=== PATIENT | female | born 1985 | race African-American/Black ===

== ENCOUNTER 2018-06-26 13:34 | Emergency (ER) | payer OTHER ==
[~2018-06-26] VITALS: Ht 165.1 cm; Wt 113.4 kg
[~2018-06-26 13:34] MED LIST: ALL DAY ALLERGY10 M2 PO; NAPROSYN500 MG PO; NOHOMEMEDICATIONS; NORVASC5 MG PO; PREDNISONE 20 M20 MG PO; ZESTRIL20 MG PO
[2018-06-26] MEDS ORDERED: VENTOLIN HFA 1818 GM INH (15:33)
[2018-06-26] MEDS ORDERED: MEDROLDOSEPACK PO (15:33)
[2018-06-26] MEDS ORDERED: AZITHROMYCIN500 MG PO (15:33)
[2018-06-26 15:43] VITALS: BP 143/88
== END 2018-06-26 15:44 | disposition home or self-care (01) ==
LOC: M.ERS 13:34
DX: J02.9 Acute pharyngitis, unspecified (principal); I10 Essential (primary) hypertension; Z90.721 Acquired absence of ovaries, unilateral

== ENCOUNTER 2019-10-31 07:32 | Emergency (ER) | payer OTHER ==
[~2019-10-31] VITALS: Ht 167.6 cm; Wt 90.7 kg
[~2019-10-31 07:32] MED LIST changes: +AZITHROMYCIN500 MG PO; +MEDROLDOSEPACK PO; +VENTOLIN HFA 1818 GM INH
[2019-10-31] MEDS ORDERED: IBUPROFEN 800800 M1 PO (07:59)
[2019-10-31] MEDS ORDERED: FLEXERIL PO (07:59)
[2019-10-31] MEDS ORDERED: NORCO 5-325 TA1 EAC1 PO (07:59)
[2019-10-31 08:16] VITALS: BP 179/104
== END 2019-10-31 08:16 | disposition home or self-care (01) ==
LOC: M.ERS 07:32
DX: M54.5 Low back pain (principal); I10 Essential (primary) hypertension

== ENCOUNTER 2020-07-13 08:49 | Emergency (ER) | payer BC ==
[~2020-07-13] VITALS: Ht 167.6 cm; Wt 116.6 kg
[~2020-07-13 08:49] MED LIST changes: +FLEXERIL PO; +IBUPROFEN 800800 M1 PO; +NORCO 5-325 TA1 EAC1 PO
[2020-07-13] MEDS ORDERED: HYDROCHLOROTHIA25 M2 PO (08:59)
[2020-07-13] MEDS ORDERED: NORVASC 2.5 MG2.5 M1 PO (08:59)
[2020-07-13] MEDS ORDERED: KEFLEX250 M1 PO (08:59)
[2020-07-13 09:28] LABS: ABSOLUTE EOSINOPHILS 0.4 thou/uL (0.0-0.7); ABSOLUTE LYMPHOCYTES 1.2 thou/uL (0.8-5.3); ABSOLUTE MONOCYTES 0.5 thou/uL (0.0-1.2); ABSOLUTE NEUTROPHILS 5.5 thou/uL (1.6-8.1); BASOPHILS 0.6 %; EOSINOPHILS 4.7 %; HEMATOCRIT 35.8 % (37.0-47.0); HEMOGLOBIN 11.7 gm/dL (12.0-15.0); LYMPHOCYTES 15.7 %; MCH 25.8 pg (26.0-34.0); MCHC 32.8 g/dL (28.0-37.0); MCV 78.8 fL (80.0-100.0); MONOCYTES 6.6 %; MPV 7.5 fl. (7.2-11.1); NUCLEATED RBCS 0 /100WBC; PLATELET COUNT* 370 thou/uL (150-400); POLYS 72.4 %; RBC 4.54 mil/uL (4.20-5.00); RDW-CV 15.7 % (10.5-14.5); WBC 7.6 thou/uL (4.0-11.0)
[2020-07-13 09:41] LABS: ALBUMIN 3.3 g/dL (3.4-5.0); CALCIUM 8.5 mg/dL (8.5-10.1); CREATININE 1.2 mg/dL (0.6-1.3); POTASSIUM 3.2 mmol/L (3.5-5.1); TOTAL BILIRUBIN 0.2 mg/dL (<0.1-1.0); TOTAL PROTEIN 7.8 g/dL (6.4-8.2)
[2020-07-13] MEDS ORDERED: BACTRIM DS TAB1 EAC1 PO (10:32)
[2020-07-13] MEDS ORDERED: DIPHENHIST50 MG PO (10:32)
[2020-07-13 10:45] VITALS: BP 150/88
== END 2020-07-13 10:46 | disposition home or self-care (01) ==
LOC: M.ERS 08:49
PROVIDERS: Emergency Medicine Emergency Medical Services
DX: L03.115 Cellulitis of right lower limb (principal); T78.40XA Allergy, unspecified, initial encounter; I10 Essential (primary) hypertension; W57.XXXA Bitten or stung by nonvenomous insect and other nonvenomous arthropods, initial encounter